=== PATIENT | male | born 1960 | race Caucasian/White ===

== ENCOUNTER → 2023-01-12 23:00 | Outpatient (CLI) | payer MEDICARE, SELFPAY ==
[2023-01-12 18:18] LABS: Benzodiazepines Screen,Urine Negative ng/ml (<200)
[2023-01-12 18:19] LABS: Amphetamine/Metha Screen,Urine Negative ng/ml (<1000)
[2023-01-12 18:20] LABS: Barbiturates Screen,Urine Negative ng/ml (<200); Cannabinoid Screen,Urine Negative ng/ml (<50)
[2023-01-12 18:21] LABS: Cocaine Screen,Urine Negative ng/ml (<300)
[2023-01-12 18:22] LABS: Methadone Screen,Urine Negative ng/ml (<300); Opiate Screen,Urine Negative ng/ml (<300)
[2023-01-12 18:23] LABS: Phencyclidine Screen,Urine Negative ng/ml (<25)
== END ==
PROVIDERS: PCP Nurse Practitioner Family; Visit Provider Nurse Practitioner Family
DX: Z79.899 Other long term (current) drug therapy (principal)
CPT/HCPCS: 80305

== ENCOUNTER 2023-03-07 18:30 | Outpatient (CLI) | payer MEDICARE, SELFPAY ==
[2023-03-07 22:02] LABS: Amphetamine/Metha Screen,Urine Negative ng/ml (<1000); Barbiturates Screen,Urine Negative ng/ml (<200); Cannabinoid Screen,Urine Negative ng/ml (<50); Cocaine Screen,Urine Negative ng/ml (<300); Methadone Screen,Urine Negative ng/ml (<300); Opiate Screen,Urine Negative ng/ml (<300); Phencyclidine Screen,Urine Negative ng/ml (<25)
[2023-03-07 22:41] LABS: Benzodiazepines Screen,Urine Negative ng/ml (<200)
== END 2023-03-07 23:59 ==
LOC: LAB.DROPOF 18:30
PROVIDERS: PCP Nurse Practitioner Family; Visit Provider Nurse Practitioner Family
DX: Z79.899 Other long term (current) drug therapy (principal)
CPT/HCPCS: 80307

== ENCOUNTER 2023-03-19 12:55 | Outpatient (CLI) | payer MEDICARE, SELFPAY | END 2023-03-19 23:59 | PROVIDERS: PCP Nurse Practitioner Family; Visit Provider Nurse Practitioner Family | DX: R06.02 Shortness of breath (principal); J44.9 Chronic obstructive pulmonary disease, unspecified; Z79.51 Long term (current) use of inhaled steroids; Z72.0 Tobacco use | CPT/HCPCS: 94060; 94618; 94726; 94729 ==

== ENCOUNTER 2023-05-08 18:59 | Outpatient (CLI) | payer MEDICARE, SELFPAY ==
[2023-05-08 18:26] LABS: Basophils # 0.1 K/mm3 (0-0.2); Basophils % 1.4 % (0.1-2.0); Eosinophils # 0.1 K/mm3 (0.0-0.4); Eosinophils % 0.8 % (0.1-12.0); Hematocrit 53.7 % (42.0-52.0); Hemoglobin 17.4 g/dL (14.1-18.0); Lymphocytes # 2.8 K/mm3 (0.7-4.5); Lymphocytes % 33.6 % (10-50); Mean Corpuscular HGB Conc 32.5 g/dL (31.8-35.4); Mean Corpuscular Hemoglobin 33.1 pg (27.0-31.2); Mean Corpuscular Volume 101.9 fl (80-94); Mean Platelet Volume 8.1 fl (7.4-10.4); Monocytes # 0.4 K/mm3 (0.1-1.0); Monocytes % 4.4 % (1.7-9.3); Neutrophils # 4.9 K/mm3 (1.8-7.8); Neutrophils % 59.7 % (37.0-80.0); Platelet Count 266 K/mm3 (142-424); Red Blood Count 5.27 M/mm3 (4.60-6.20); Red Cell Distribution Width 13.4 % (11.5-17.5); White Blood Count 8.2 K/mm3 (4.8-10.8)
[2023-05-08 18:37] LABS: Alanine Aminotransferase 15 U/L (12-78); Albumin Level 4.5 g/dl (3.5-5.0); Albumin/Globulin Ratio 1.6 (1.1-1.8); Alkaline Phosphatase 53 U/L (38-126); Anion Gap 13.7 mEq/L (5-15); Aspartate Amino Transferase 27 U/L (17-59); Bilirubin,Total 0.6 mg/dl (0.2-1.3); Blood Urea Nitrogen 14 mg/dl (9-20); Calcium 9.8 mg/dl (8.4-10.2); Carbon Dioxide 29 mmol/L (22.0-30.0); Chloride 104 mmol/L (98-107); Chol/HDL Ratio 4.9 (1-3.5); Cholesterol 207 mg/dl (140-200); Estimated Glomerular Filt Rate 86 ml/min (>60); GFR (African American) 104 ML/MIN (>60); Globulin 2.9 g/dL (1.3-3.2); Glucose 102 mg/dl (74-100); HDL Cholesterol 42 mg/dl (40-60); Potassium 4.7 mmoL/L (3.5-5.1); Sodium 142 mmol/L (136-145); Total Protein,Serum 7.4 g/dl (6.3-8.2); Triglycerides 110 mg/dl (30-150); VLDL Cholesterol 22 mg/dL (0-40)
[2023-05-08 18:53] LABS: 25-OH Vitamin D, Total 21.5 ng/mL (30-100)
[2023-05-08 18:54] LABS: Direct LDL Cholesterol 126.02 mg/dL (100-129)
[2023-05-08 19:08] LABS: Prostate Specific Ag Screen 1.5 ng/ml (0.0-4.0); Thyroid Stimulating Hormone 0.98 uIU/mL (0.465-4.68)
== END 2023-05-08 23:59 ==
LOC: LAB.DROPOF 19:00
PROVIDERS: PCP Nurse Practitioner Family; Visit Provider Nurse Practitioner Family
DX: Z12.5 Encounter for screening for malignant neoplasm of prostate (principal); E55.9 Vitamin D deficiency, unspecified; E78.5 Hyperlipidemia, unspecified; R53.83 Other fatigue; I10 Essential (primary) hypertension; Z68.25 Body mass index [BMI] 25.0-25.9, adult; Z72.0 Tobacco use
CPT/HCPCS: 80053; 80061; 82306; 84443; 85025; G0103

== ENCOUNTER 2023-12-10 15:13 | Outpatient (CLI) | payer MEDICARE, SELFPAY ==
--- NOTE | 2023-12-10 15:14 | CT_ITS ---
FINAL REPORT CLINICAL HISTORY: lung cancer screening smoker 40 years, 1ppd hx of copd, emphysema father hx of lung cancer COMPARISON: None FINDINGS: Axial images were obtained from the lung apex to the mid abdomen by computed tomography. Low-dose protocol was utilized. CTDl vol(mGy): 2.90 DLP (mGy-cm): 117.50 FINDINGS: There is no axillary adenopathy. There are a few small scattered mediastinal lymph nodes. There are calcified hilar nodes. The heart size is normal. There is no pericardial or pleural effusion. There are moderate changes of centrilobular emphysema. Multiple small noncalcified nodules are seen in the lungs bilaterally. There is a 6 mm nodule in the left lung base seen on image 73 of series 3. There is an adjacent 3 mm nodule in the left lung base seen on image 75 of series 3. A small fissural nodule on the right measures 5 mm and is well-seen on image 51 of series 3. In the right midlung, there is a new nodule measuring up to 7 mm seen on image 72 of series 3. Other smaller pulmonary nodules are seen. IMPRESSION: Bilateral pulmonary nodules measuring up to 7 mm in the right midlung and up to 6 mm in the left lower lobe. Lung RADS category 3. Recommend 6 month follow-up low-dose chest CT. Reviewed, Interpreted and Dictated by Roberth Raymond MD Transcribed by Tamara Stroud Authenticated and [facility]
== END 2023-12-10 23:59 | disposition home or self-care (01) ==
LOC: RAD 15:14
PROVIDERS: PCP Nurse Practitioner Family; Visit Provider Internal Medicine Pulmonary Disease
DX: F17.210 Nicotine dependence, cigarettes, uncomplicated (principal)
CPT/HCPCS: 71271

== ENCOUNTER 2024-02-20 16:43 | Emergency (ER) | payer MEDICARE, SELFPAY ==
[2024-02-20 16:54] VITALS: BP 123/83; PULSE 83; RESP 18; TEMP 36.7; O2SAT 96; BMI 23.6
[2024-02-20 16:56] LABS: Coronavirus 19, PCR Not Detected (NotDetected); Influenza A, PCR Not Detected (NotDetected); Influenza B, PCR Not Detected (NotDetected)
--- NOTE | 2024-02-20 17:00 | XR_ITS ---
PROCEDURE INFORMATION: Exam: XR Chest Exam date and time: 02/20/2024 5:10 PM Age: 63 years old Clinical indication: Cough; Additional info: Cough, wheezing TECHNIQUE: Imaging protocol: Radiologic exam of the chest. Views: 2 views. COMPARISON: CT LUNG SCREENING 12/10/2023 3:15 PM FINDINGS: Lungs: Unremarkable. No consolidation. Pleural spaces: Unremarkable. No pleural effusion. No pneumothorax. Heart/Mediastinum: Unremarkable. No cardiomegaly. Bones/joints: Unremarkable. IMPRESSION: No acute findings.
--- NOTE | 2024-02-20 17:00 | HMH.EDGENADL ---
Discharge Plan Disposition Patient Disposition: Home, Self-Care Condition: Good Prescriptions Prescriptions: New azithromycin 500 mg tablet 500 mg PO DAILY 4 Days Qty: 4 0RF prednisone 20 mg tablet 40 mg PO DAILY 4 Days Qty: 8 0RF efeqnwusgpbawhy-ryehoqucj-GS [Bromfed DM] 2-30-10 mg/5 mL syrup 5 ml PO Q6H PRN (Reason: cold symptoms) Qty: 118 0RF amoxicillin-pot clavulanate 875-125 mg tablet 1 tab PO BID 7 Days Qty: 14 0RF No Action albuterol sulfate [ProAir HFA] 90 mcg/actuation HFA aerosol inhaler 2 puff inhalation Q4-6H PRN (Reason: shortness of breath or wheezing) Qty: 8.5 2RF Trelegy Ellipta 100-62.5-25 mcg blister with device 1 inh inhalation DAILY 90 Days Qty: 90 2RF sildenafil 100 mg tablet 100 mg PO DAILY PRN (Reason: sexual activity) Qty: 30 0RF Rx Instructions: administer 30 minutes to 4 hours before activity fluticasone propionate [Flonase Allergy Relief] 50 mcg/actuation spray,suspension 2 spray intranasal DAILY 90 Days Qty: 16 2RF Rx Instructions: administer into each nostril gabapentin 400 mg capsule 400 mg PO TID Qty: 90 3RF tamsulosin 0.4 mg capsule 0.4 mg PO HS Qty: 90 1RF Debrox 6.5 % drops 5 drp otic (ear) DAILY 4 Days Qty: 15 0RF Referrals Follow up/Referrals: Bob Ventura APRN [Primary Care Provider] - See instructions Activity Restrictions/Add. Instructions Additional Instructions/Restrictions: You were evaluated in the emergency department today. Please picker your prescriptions at the pharmacy and take them as prescribed. Follow-up closely with your primary care provider and revenue settlements administrator. Expect that cough may linger for several weeks. Return to the emergency department for new or worsening symptoms. Clinical Impressions Clinical Impression: Viral URI with cough, Acute right otitis media, Acute exacerbation of chronic obstructive pulmonary disease Stand Alone Forms Stand Alone Forms: Work/School Release Instructions Patient Instructions: Middle Ear Infection, DI for Chronic Obstructive Pulmonary Disease, DI for Viral Upper Respiratory Infection -- Adult Print Language Print Language: Belarusian Discharge ED Provider: [facility] HPI General Chief complaint: Upper Respiratory Infection Stated complaint: cough, runny nose rebecca Time Seen by Provider: 02/20/24 16:48 Mode of Arrival: Ambulatory Source of Information: Patient Limitations: No Limitations Description of Symptoms (Recalled from ER Triage Doc. by RN): cough congestion x1 wk History of Present Illness HPI narrative: This patient is a 63-year-old male with a history of tobacco dependence and COPD presenting to the emergency department for evaluation with concern for cough and congestion x 1 week. He states it started out as a sore throat but then progressed to significant cough and chest congestion. No fevers, chest pain, abdominal pain, vomiting, or other concerns. He has taken NyQuil with some improvement but continues to have cough and congestion. He does have inhalers at home Related Data Previous Rx's ?Medication ?Instructions ?Recorded sildenafil 100 mg tablet 100 mg PO DAILY PRN sexual 03/07/23 activity #30 tabs fluticasone propionate 50 2 spray intranasal DAILY 90 days 04/20/23 mcg/actuation nasal #16 grams spray,suspension (Flonase Allergy Relief) albuterol sulfate 90 mcg/actuation 2 puff inhalation Q4-6H PRN 08/02/23 aerosol inhaler (ProAir HFA) shortness of breath or wheezing #8.5 grams fluticasone fur. 100 mcg-umeclid 1 inh inhalation DAILY 90 days #90 08/02/23 62.5 mcg-vilant 25 mcg ea inhalat.powder (Trelegy Ellipta) carbamide peroxide 6.5 % ear drops 5 drp otic (ear) DAILY 4 days #15 12/12/23 (Debrox) mL gabapentin 400 mg capsule 400 mg PO TID #90 caps 12/12/23 tamsulosin 0.4 mg capsule 0.4 mg PO HS #90 caps 12/12/23 amoxicillin 875 mg-potassium 1 tab PO BID 7 days #14 tabs 02/20/24 clavulanate 125 mg tablet azithromycin 500 mg tablet 500 mg PO DAILY 4 days #4 tabs 02/20/24 ebbaeazglwbrunh-rzzempwnjsycmdc-VH 5 ml PO Q6H PRN cold symptoms #118 02/20/24 2 mg-30 mg-10 mg/5 mL oral syrup mL (Bromfed DM) prednisone 20 mg tablet 40 mg (2 x 20 mg) PO DAILY 4 days 02/20/24 #8 tabs Allergies Allergy/AdvReac Type Severity Reaction Status Date / Time No Known Allergies Allergy Verified 12/17/23 15:26 [facility] Disclaimer: The information contained in this section may have been updated after the patient was seen, as this information can be updated by other users. Medical History Multiple lung nodules on CT Encounter for screening for malignant neoplasm of lung Smoking greater than 30 pack years Allergic rhinitis Asthma Hernia, inguinal Surgical History History of hernia surgery Family History Other Cancer Diabetes Social History Smoking Status: Current every day smoker years smoked: 40 alcohol intake: never substance use type: denies use current occupational status: disabled Travel in the last 8 weeks: None household members: caregiver housing: apartment marital status: education level: other details: GED service: No Have you lived/traveled outside [place] in past 30 days?: No Contact w/someone who lives/traveled outside [place] past 30 days?: No Exposure to someone with infectious disease in past 14 days?: No Do you have a fever (greater than 100.4 F or 38 C)?: No Have you tested positive for COVID-19: No Exposed to someone with COVID-19 in past 14 days?: Yes Do you have a sore throat?: Yes Do you have a cough?: Yes Do you have any weakness?: Yes Do you have any diarrhea?: No Are you experiencing any unusual bleeding?: No Do you have any muscle aches/pain?: Yes Do you have any abdominal pain?: No Are you experiencing loss of taste or smell?: No Other Medical History Have you received the Pneumonia Vaccine: No ROS Obtained: Yes All systems reviewed & no additional complaints except as documented Physical Exam General General appearance: alert and in no apparent distress Head Head exam: atraumatic and normocephalic Eye Eye exam: Present normal appearance, PERRL and EOMI ENT ENT exam: Present normal oropharynx, mucous membranes moist, normal external ear exam and other (Right suppurative otitis media. Bilateral cerumen impaction); Absent TM's normal bilaterally Neck Neck exam: Present normal inspection, full ROM and trachea midline; Absent tenderness Chest Chest inspection: Present normal inspection and symmetric chest wall rise; Absent tenderness Respiratory Respiratory exam: Present wheezes and other (Faint end expiratory wheezing with no increased work of breathing.); Absent respiratory distress, stridor or accessory muscle use Cardiovascular Cardiovascular exam: Present regular rate and normal rhythm Abdominal Exam Abdominal exam: Present soft; Absent distention, tenderness or guarding Extremities Exam Extremities exam: Present normal inspection, full ROM and normal capillary refill; Absent tenderness or edema Back Exam Back exam: Present normal inspection and full ROM; Absent tenderness Neurological Exam Neurological exam: Present alert, oriented X3, CN II-XII intact and normal gait; Absent motor sensory deficit Psychiatric Psychiatric exam: Present normal affect and normal mood Skin Skin exam: Present warm and dry Medical Decision Making Medical Records Medical records reviewed: Yes I reviewed the patient's medical records. Screening: Per USPSTF and CDC recommendations, given the prevalence of disease in our region, it is our hospital?s policy to screen for HIV and viral Hepatitis for all patients aged 18 and over and those with ongoing risk factors. [place] Inquiry Pt receiving controlled substance: No Vital Signs: 02/20/24 16:54 02/20/24 17:46 Temperature 98.1 F 98.3 F Temperature Source Oral Oral Pulse Rate 73 Pulse Rate [Right Radial] 83 Respiratory Rate 18 22 Blood Pressure 126/78 Blood Pressure [Right Arm] 123/83 Blood Pressure Mean [Right Arm] 96 Blood Pressure Source Automatic Cuff Blood Pressure Position Sitting 02 Sat by Pulse Oximetry 96 Oxygen Delivery Method Room Air Lab Data Lab results reviewed: Yes I reviewed the patient's lab results. Lab Results 02/20/24 16:53: SARS-CoV-2 (PCR) Not detected, Influenza A Untype (PCR) Not detected, Influenza Type B (PCR) Not detected Orders (Tests/Meds): ED MEDICATIONS Discontinued Medications Generic Name Dose Route Start Last Admin Trade Name Freq PRN Reason Stop Dose Admin Amoxicillin 500 mg 02/20/24 17:29 02/20/24 17:35 Amoxicillin 500mg Capsule PO 02/20/24 17:30 Not Given ONCE ONE Amoxicillin/Clavulanate Potassium 1 each 02/20/24 17:33 02/20/24 17:39 Amoxicillin/Clavulanate Potassium 875/125mg Tablet PO 02/20/24 17:34 1 each ONCE ONE Administration Azithromycin 500 mg 02/20/24 17:29 02/20/24 17:39 Azithromycin 250mg Tablet PO 02/20/24 17:30 500 mg ONCE ONE Administration Prednisone 40 mg 02/20/24 17:29 02/20/24 17:39 Prednisone 20mg Tab PO 02/20/24 17:30 40 mg ONCE ONE Administration ORDERS Category Date Time Status CXR 2 view (NOT portable) [XR chest 2V] Stat Exams 02/20/24 17:00 Completed Rapid PCR Covid and Flu A/B Stat Lab 02/20/24 16:53 Completed Medical Decision Narrative: In summary, this patient is a 63-year-old male presenting to the Emergency Department for evaluation of cough and chest congestion. Differential diagnoses considered include but are not limited to pneumonia, viral syndrome, respiratory failure, COPD exacerbation. Ruling out the most morbid conditions drove assessment. It should be noted patient's history includes COPD and tobacco dependence which are not at goal therapy. This complicates all aspects of care by increasing patient's risk for morbidity. I reviewed patient's past medical records and noted prior PCP and pulmonology evaluations for follow-up for COPD on long-term inhaled steroid. On exam, the patient is sitting upright in no acute distress with reassuring vital signs on cardiac telemetry. No increased work of breathing. He has faint end expiratory wheezing but otherwise reassuring respiratory exam. He does have significant amount of cerumen in the ears and states that he feels like it stopped up. His ears were flushed here by nursing to help clear out wax impaction with great results. Physical exam afterward concerning for right otitis media with redness, bulging tympanic membrane with suppurative effusion. Will plan to treat this with oral antibiotics. Workup included viral swab and two-view chest x-ray. I considered obtaining basic lab evaluation including CBC and CMP, however based on reassuring history and exam I do not feel this is indicated as it would likely not foreign exchange clerk. I independently interpreted x-ray prior to the radiologist read and noted no acute focal consolidation concerning for pneumonia.. Please see their read for final interpretation. On reassessment, the patient is resting comfortably. Ultimately, given that he has history of COPD, we will plan to treat wheezing with steroids as well as azithromycin. Given otitis, will treat with Augmentin. At this time, feel the patient is appropriate for discharge home with prescriptions and instructions for close follow-up with primary care. Strict return precautions were given and he was discharged after all questions were answered. Critical Care Critical Care Time Critical Care Time: No
[2024-02-20] MEDS: AZITHROMYCIN 250MG TABLET 500 MG PO (17:39)
[2024-02-20] MEDS: predniSONE 20MG TAB 40 MG PO (17:39)
[2024-02-20] MEDS: AMOXICILLIN/CLAVULANATE POTASSIUM 875/125MG TABLET 1 EACH PO (17:39)
[2024-02-20 17:46] VITALS: BP 126/78; PULSE 73; RESP 22; TEMP 36.8; O2SAT 95
== END 2024-02-20 17:45 | disposition home or self-care (01) ==
PROVIDERS: Emergency Provider Emergency Medicine; PCP Nurse Practitioner Family
DX: J44.1 Chronic obstructive pulmonary disease with (acute) exacerbation (principal); H66.91 Otitis media, unspecified, right ear; J06.9 Acute upper respiratory infection, unspecified; R09.81 Nasal congestion; J02.9 Acute pharyngitis, unspecified; R05.9 Cough, unspecified; Z72.0 Tobacco use
CPT/HCPCS: 71046; 87636; 99283

== ENCOUNTER 2024-06-18 10:40 | Outpatient (CLI) | payer MEDICARE, SELFPAY ==
--- NOTE | 2024-06-18 10:41 | CT_ITS ---
FINAL REPORT TECHNIQUE: Thin section axial images were obtained from the lung apices through the upper abdomen without contrast. This study was performed with techniques to keep radiation doses as low as reasonably achievable (ALARA). Individualized dose reduction techniques using automated exposure control or adjustment of mA and/or kV according to the patient's size were employed. CLINICAL HISTORY: 6 mth F/U; bilateral nodules COMPARISON: CT low-dose 12/10/2023 FINDINGS: There is no mediastinal, hilar, or axillary lymphadenopathy. No pleural or pericardial effusion. Changes from emphysema. No new pulmonary nodules or mass. Previously seen noncalcified pulmonary nodules are unchanged. Index nodule in the right middle lobe on image 163 of series 3 measures 5 mm and was 6 mm on read measurement. Left lower lobe nodules are also stable. Nodule on image 210 of series 3 measures 6 mm and was 6 mm on remeasurement. No new consolidations. Limited, unenhanced evaluation of the upper abdomen is without acute abnormality. There is no acute osseous abnormality. IMPRESSION: Stable bilateral subcentimeter pulmonary nodules without new abnormality identified. Recommend continued follow-up in an additional 12 months. Reviewed, Interpreted and Dictated by Francy Cleaning MD Transcribed by Aisha Madrigal Authenticated and [facility]
== END 2024-06-18 23:59 | disposition home or self-care (01) ==
LOC: RAD 10:41
PROVIDERS: PCP Nurse Practitioner Family; Visit Provider Internal Medicine Pulmonary Disease
DX: R91.8 Other nonspecific abnormal finding of lung field (principal)
CPT/HCPCS: 71250

== ENCOUNTER 2024-10-29 15:55 | Emergency (ER) | payer MEDICARE, SELFPAY ==
[2024-10-29 16:10] VITALS: BP 104/62; PULSE 82; RESP 16; TEMP 37; O2SAT 94; BMI 23.6
[2024-10-29 16:18] VITALS: BP 136/83; PULSE 86; RESP 22; TEMP 37; O2SAT 93
--- NOTE | 2024-10-29 16:20 | ED_ITS ---
<Statement entered by Vish Hale MD - 10/30/24 04:15> I was consulted by the SHARIFA, and we discussed the complexity of the problems being addressed. I approve the treatment and management plan for this patient's care in the emergency department, thus performing a substantive portion of the medical decision making. Vish Hale MD Discharge Plan Disposition Patient Disposition: Home, Self-Care Condition: Good Prescriptions Prescriptions: New albuterol sulfate [Ventolin HFA] 90 mcg/actuation HFA aerosol inhaler 2 inh inhalation Q4H PRN (Reason: shortness of breath or wheezing) Qty: 8.5 0RF azithromycin [Zithromax Z-Rashawn] 250 mg tablet See Rx Instructions .ROUTE .COMPLEX Qty: 6 0RF Rx Instructions: For 250 mg dose pack: take 500 mg today (day 1), then 250 mg for 4 days (days 2-5) No Action sildenafil 100 mg tablet 100 mg PO DAILY PRN (Reason: sexual activity) Qty: 30 0RF Rx Instructions: administer 30 minutes to 4 hours before activity fluticasone propionate [Flonase Allergy Relief] 50 mcg/actuation spray,suspension 2 spray intranasal DAILY 90 Days Qty: 16 2RF Rx Instructions: administer into each nostril gabapentin 400 mg capsule 400 mg PO TID Qty: 90 3RF albuterol sulfate 90 mcg/actuation HFA aerosol inhaler See Rx Instructions .ROUTE .COMPLEX Qty: 9 2RF Dose Instruction: INHALE 2 PUFFS BY MOUTH EVERY 4 TO 6 HOURS NEEDED FOR SHORTNESS OF BREATH FOR WHEEZING Rx Instructions: INHALE 2 PUFFS BY MOUTH EVERY 4 TO 6 HOURS NEEDED FOR SHORTNESS OF BREATH FOR WHEEZING Trelegy Ellipta 100-62.5-25 mcg blister with device See Rx Instructions .ROUTE .COMPLEX Qty: 60 6RF Dose Instruction: Inhale 1 puff by mouth once daily Rx Instructions: Inhale 1 puff by mouth once daily tamsulosin 0.4 mg capsule See Rx Instructions .ROUTE .COMPLEX Qty: 90 0RF Dose Instruction: TAKE 1 CAPSULE BY MOUTH AT BEDTIME NIGHTLY Rx Instructions: TAKE 1 CAPSULE BY MOUTH AT BEDTIME NIGHTLY Referrals Follow up/Referrals: Provider,Referral, MD [Primary Care Provider, Medical] - See instructions Activity Restrictions/Add. Instructions Additional Instructions/Restrictions: You were evaluated on an emergency basis. It is very important that you follow- up with your primary care provider and any specialist who we discussed within the next 2 days in order to better assess your health more comprehensively. For example, incidental findings on imaging or laboratory results that were performed today may be discovered, which do not require immediate medical care, but may impact your health in the future. If your symptoms worsen or persist, please return to the emergency department immediately for reassessment. Take all medications as prescribed. In queue for allowing me to participate in your health care, and I hope you feel better soon. Clinical Impressions Clinical Impression: Acute exacerbation of chronic obstructive pulmonary disease (COPD) Instructions Patient Instructions: DI for Chronic Obstructive Pulmonary Disease Print Language Print Language: Japanese Discharge ED Provider: Vish Hale General Adult HPI General Chief complaint: Upper Respiratory Infection Stated complaint: soa , CONGESTED Time Seen by Provider: 10/29/24 16:20 Mode of Arrival: Ambulatory Source of Information: Patient Description of Symptoms (Recalled from ER Triage Doc. by RN): patient presents to the ED for shortness of breath. history of COPD and asthma. does not have a prescribed inhaler for his asthma mark harrington have one that a friend gave him. he states he cannot afford it . History of Present Illness HPI narrative: 63-year-old male with a history of COPD and asthma presents to the emergency department with complaints of cough, shortness of breath for the past several days. Denies fevers or chest pain. He reports he is out of his Trelegy but does have an albuterol inhaler. Patient reports he is unable to afford his Trelegy. Related Data Previous Rx's ?Medication ?Instructions ?Recorded sildenafil 100 mg tablet 100 mg PO DAILY PRN sexual 0 03/07/23 activity #30 tabs fluticasone propionate 50 2 spray intranasal DAILY 90 days 04/20/23 mcg/actuation nasal #16 grams spray,suspension (Flonase Allergy Relief) albuterol sulfate 90 mcg/actuation See Rx Instructions .Route 06/10/24 aerosol inhaler .COMPLEX #9 grams fluticasone fur. 100 mcg-umeclid See Rx Instructions . Route 08/25/24 62.5 mcg-vilant 25 mcg .COMPLEX #60 ea inhalat.powder (Trelegy Ellipta) gabapentin 400 mg capsule 400 mg PO TID #90 caps 08/26 tamsulosin 0.4 mg capsule See Rx Instructions .Route 0 09/15/24 .COMPLEX #90 caps albuterol sulfate 90 mcg/actuation 2 inh inhalation Q4 H PRN shortness 10/29/24 aerosol inhaler (Ventolin HFA) of breath or wheezing # 8.5 grams azithromycin 250 mg tablet See Rx Instructions PO .COM PLEX #6 10/29/24 (Zithromax Z-Rashawn) tabs Allergies Allergy/AdvReac Type Severity Reaction Status Date / Time No Known Allergies Allergy Verified 08/26/24 15:21 [facility] Disclaimer: The information contained in this section may have been updated after the patient was seen, as this information can be updated by other users. Medical History (Updated 10/29/24 @ 18:47 by Deborah Wong) Colon cancer screening Multiple lung nodules on CT Encounter for screening for malignant neoplasm of lung Smoking greater than 30 pack years Allergic rhinitis Asthma Hernia, inguinal Surgical History History of hernia surgery Family History Other Cancer Diabetes Social History Smoking Status: Current every day smoker years smoked: 40 alcohol intake: never substance use type: denies use current occupational status: disabled Travel in the last 8 weeks?: None household members: caregiver housing: apartment marital status: education level: other details: GED service: No Have you lived/traveled outside [place] in past 30 days?: No Contact w/someone who lives/traveled outside [place] past 30 days?: No Exposure to someone with infectious disease in past 14 days?: No Do you have a fever (greater than 100.4 F or 38 C)?: No Have you tested positive for COVID-19?: No Exposed to someone with COVID-19 in past 14 days?: No Do you have a sore throat?: No Do you have a cough?: No Do you have any weakness?: No Do you have any diarrhea?: No Are you experiencing any unusual bleeding?: No Do you have any muscle aches/pain?: No Do you have any abdominal pain?: No Are you experiencing loss of taste or smell?: No Other Medical History Have you received the Pneumonia Vaccine: No ROS Obtained: Yes other Respiratory Respiratory: Reports shortness of breath, Reports chest congestion, Reports cough and Reports wheezing Allergic/Immunologic Allergic/Immunologic: Reports wheezing Physical Exam Narrative Physical exam: General: Awake, aware, in no acute distress HEENT: Normocephalic, no evidence of trauma CV: RRR, no murmurs, rubs, or gallops Pulm: Patient with diminished lung sounds bilaterally. He does have wheezing as well. Patient with mild increased work of breathing while carrying on a conversation however at rest patient appears to be without respiratory distress. ABD: Nontender, no swelling, guarding, or rebound tenderness Psych, appropriate mood and affect General General appearance: alert Respiratory Respiratory exam: Present wheezes Cardiovascular Cardiovascular exam: Present regular rate Neurological Exam Neurological exam: Present alert Medical Decision Making Medical Records Screening: Per USPSTF and CDC recommendations, given the prevalence of disease in our region, it is our hospital?s policy to screen for HIV and viral Hepatitis for all patients aged 18 and over and those with ongoing risk factors. [place] Inquiry Pt receiving controlled substance: No Vital Signs: 10/29/24 16:10 10/29/24 16:18 10/29/24 16:29 Temperature 98.6 F 98.6 F Temperature Source Temporal Artery Scan Oral Pulse Rate 86 Pulse Rate [Left Radial] 82 Respiratory Rate 16 22 Blood Pressure 136/83 Blood Pressure [Left Arm] 104/62 L Blood Pressure Mean [Left Arm] 76 Blood Pressure Source Automatic Cuff Blood Pressure Source [Left Arm] Automatic Cuff Blood Pressure Position Sitting Blood Pressure Position [Left Arm] Sitting 02 Sat by Pulse Oximetry 94 L 93 L 94 L Oxygen Delivery Method Room Air Room Air Room Air Lab Data Lab Results 10/29/24 16:38: WBC 6.2, RBC 4.97, Hgb 15.6, Hct 47.5, MCV 95.6 H, MCH 31.4 H, MCHC 32.8, RDW 12.6, Plt Count 187, MPV 9.8, Neut % (Auto) 57.7, Lymph % (Auto) 34.2, Richardson % (Auto) 5.5, Eos % (Auto) 1.8, Baso % (Auto) 0.6, Neut # (Auto) 3.6, Lymph # (Auto) 2.1, Richardson # (Auto) 0.3, Eos # (Auto) 0.1, Baso # (Auto) 0.0, Sodium 140, Potassium 4.1, Chloride 107, Carbon Dioxide 27, Anion Gap 10.1, BUN 16, Creatinine 0.70, Estimated Creat Clear 82, Estimated GFR 115, Est GFR ( Amer) 139, Glucose 120 H, Calcium 9.3, Total Bilirubin 0.9, AST 25, ALT 17, Alkaline Phosphatase 50, Total Protein 7.3, Albumin 4.2, Globulin 3.1, Albumin/Globulin Ratio 1.4 10/29/24 : SARS-CoV-2 (PCR) Not detected, Influenza A Untype (PCR) Not detected, Influenza Type B (PCR) Not detected 10/29/24 16:38 10/29/24 16:38 Orders (Tests/Meds): ED MEDICATIONS Discontinued Medications Generic Name Dose Route Start Last Admin Trade Name Freq PRN Reason Stop Dose Admin Albuterol/Ipratropium 3 ml 10/29/24 16:25 10/29/24 16:41 Ipratropium/Albuterol 3 Ml Neb IH 10/29/24 16:26 3 ml ONCE ONE Administration Methylprednisolone Sodium Succinate 125 mg 10/29/24 16:25 10/29/24 16:38 Methylprednisolone Sod Succ 125mg Vial IV 10/29/24 16:26 125 mg ONCE ONE Administration ORDERS Category Date Time Status XR chest portable Stat Exams 10/29/24 16:25 Completed Complete Blood Count Auto Diff Stat Lab 10/29/24 16:38 Completed Comprehensive Metabolic Panel Stat Lab 10/29/24 16:38 Completed Rapid PCR Covid and Flu A/B Stat Lab 10/29/24 Completed Medical Decision Narrative: Initial impression of presenting illness: 63-year-old male with a history of COPD and asthma presents emergency department with complaints of cough, congestion, shortness of breath for the past several days. He denies fever or chest pain. He reports that he has been unable to take his Trelegy because he is unable to afford it however he has been using albuterol without relief of symptoms. He reports that he continues to smoke daily. Differential diagnosis includes but is not limited to: COPD exacerbation, pneumonia, viral illness Patient arrives hemodynamically stable, afebrile, without respiratory distress with vital signs interpreted by myself. Initial physical exam reveals diminished breath sounds bilaterally with wheezing. Does have slight increased work of breathing while carrying on a conversation however at rest patient is without respiratory distress. Rest of exam is unremarkable Initial diagnostic plan: Chest x-ray, laboratory studies, DuoNeb with Solu- Medrol, EKG Results from initial plan were reviewed and interpreted by myself, pertinent positives include: Laboratory studies were nonactionable. Open and flu swabs were also negative. Chest x-ray unremarkable for acute findings. Patient's EKG showed a normal sinus rhythm with no signs of ischemic changes at this time. Interventions in the ED: Patient was given DuoNeb as well as IV Solu-Medrol. Patient was made aware of the results and the findings, upon reevaluation patient has remained stable throughout stay, symptoms have improved. Upon reevaluation patient is resting comfortably in bed stating he feels much better after receiving the medications. Consultation/discussion with other physicians: Reviewed findings of patient's presenting complaint and today's workup with ED attending Dr. Oliveros. Disposition: Reviewed findings today's workup with patient informed no acute abnormalities were noted. Vies him his symptoms were likely related to his COPD exacerbation. Informed him that we will give her prescription for Z-Rashawn as well as albuterol. Recommended that he reach out to his primary care provider for further evaluation and treatment of his COPD. Him to return to the emergency department any new or worsening symptoms including uncontrolled fevers, worsening shortness of breath, or chest pain. Patient is agreeable to plan of care Patient made aware of findings and had a detailed discussion with symptomatic care and return precautions, patient voiced understanding. Critical Care Critical Care Time Critical Care Time: No
--- OUTSIDE RECORDS SUMMARY | 2024-10-29 16:24 | XMS_ITS | Clinical Summary ---
Author Organization [facility] Address [address] [place] [address] Phone Care Team Providers Care House Fellow Name Role Phone Unavailable Primary Care Provider Unavailabl e Allergies No known active allergies Medications cyanocobalamin 1,000 mcg Oral TabletIndications:A nemia due to vitamin B12 deficiency, unspecified B12 deficiency type Take 1 Tab by mouth daily. 90 Tab 2 0 Active tamsulosin (FLOMAX) 0.4 mg Oral CapsuleIndications: BPH without urinary obstruction TAKE ONE CAPSULE BY MOUTH ONCE NIGHTLY 90 Capsule 1 3 Active gabapentin (NEURONTIN) 400 mg Oral CapsuleIndications: Cervical myelopathy (HCC),Peripheral polyneuropathy Take 1 Capsule by mouth 3 times daily. 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 30 Tablet 1 3 Active albuterol (VENTOLIN HFA) 90 mcg/actuation Inhl HFA Aerosol InhalerIndications: COPD, severe (HCC) Inhale 2 Puffs into the lungs every 4 hours as needed for Wheezing. 1 g 5 3 Active umeclidinium-vilant Erika (ANORO ELLIPTA) 62.5-25 mcg/actuation Inhl Disk with DeviceIndications:C OPD, severe (HCC) Inhale 1 Puff into the lungs daily. 1 Each 5 3 Active Active Problems Patient Care Coordination No te Formatting of this note migh t be different from the original. CTSA UDS 06-08-21 as expected SOAP 03/31/2019 CYNTHIA 08/25/22 SEE TELEPHONE ENCOUNTER FROM 02/03/19 BEFORE FURTHER REFILLS OF GABAPENTIN cynthia ae 06/06/21 #[id number], 09/20/21 #[id number] [facility] audit completed by Keerthi Henry RN on 06/22/2022. Problem Noted Date Diagnosed Date BPH without urinary obstruction 01/28/2021 Overview (06/07/2021): Currently on Flomax with adequate control of symptoms. Reviewed most recent labs. Peripheral polyneuropathy 01/28/2021 Overview (01/28/2021): refilled gabapentin and tramadol. Cervical myelopathy 04/29/2018 Overview (06/07/2021): S/P injury 2015. Fell and hit neck on a table. Pain radiates into both arms. Has not had any recent imaging. Also suffers from lumbar pain. Had seen specialist in [place]. COPD, severe 03/28/2018 Overview (01/28/2021): PFTs Feb 2018 Daily Anoro but sometimes forgets. prn Rescue inhaler (1x day). Still smoking. Cervical radiculopathy 05/03/2016 Overview (01/28/2021): S/P injury 2015. Fell and hit neck on a table. Pain radiates into both arms. Referred to Pain mgmt [place] 01/28/21 refilled 30 days once of meds until these Rx will be taken over by Dr Mccloud Right leg weakness 09/15/2015 Tobacco abuse 09/07/2015 Overview (08/04/2020): LDCT 08/04/20, repeat one year. Assessment & Plan (01/28/2021 1:01 PM EST): Spent 3 minutes discussing the fact that smoking makes 1 more prone to respiratory illnesses and when there is an illness, the illness is often more severe and takes longer to resolve. 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 Resolved Problems Problem Noted Date Diagnosed Date Resolved Date Lung nodule 03/31/2019 06/07/2021 Overview (03/31/2019): Stable on Chest CT 03/26/19, repeat one year. Right leg weakness 09/07/2015 9 Episode of loss of consciousness 09/07/2015 06/07/2021 Near syncope 01/01/2019 Immunizations Immunization Administration Dates Next Due Influenza Vaccine Quadrivalent PF 11/02/2020 Influenza Virus Vaccine Quad rivalant, Flublok 11/29/2021,11/07/2019,12/31/2018,03/18 Moderna SARS-CoV-2 Bivalent Booster Vaccine 12+ Years ([place] Border) 11/29/2021 Moderna SARS-CoV-2 Booster V accine 18+ Yrs (Light Blue Border) 09/20/2021 Moderna SARS-CoV-2 Vaccine 1 2+ Yrs (Light blue border) 01/28/2021,07/02/2020,06/04/2020 Pneumococcal Conjugate Vacci ne 20 Valent 03/07/2022 Pneumococcal Polysaccharide 23 Valent 09/07/2015 Tdap 08/20/2017 Surgical History Surgery Date Site/Laterality Comments ABDOMEN SURGERY hernia repair 1992 HERNIA REPAIR 02/26/1990 - 02/25/1991 Right Medical History Medical History Date Comments Asthma Tingling arms Syncope and collapse none Arthritis Foreign body in eye piece of met al Family History Medical History Relation Name Comments Cancer Father prostate cancer , lung cancer and bone cancer Relation Name Status Comments Father Social History Tobacco Use Types Packs/Day Years Used Date Smoking Tobacco: Every Day Cigarettes 2 45.9 Started: 1976 Smokeless Tobacco: Never Tobacco Cessation:Ready to Q uit: Not Asked; Counseling Given: Not Answered Comments:To 1 ppd Alcohol Use Standard Drinks/Week Comments Yes 0 (1 standard drink = 0.6 oz pur e alcohol) 12 pack a month Overall Financial Resource Strain (CARDIA) Answe r Date Recorded How hard is it for you to pa y for the very basics like food, housing, medical care, and heating? Not very hard 03/07/2022 PHQ-2 Answer Date Recorded PHQ-2 Total Score 0 06/02/2022 [facility] - Occupational Stress Questionnaire Answer Date Recorded Do you feel stress - tense, restless, nervous, or anxious, or unable to sleep at night because your mind is troubled all the time - these days? Rather much 03/07/2022 Exercise Vital Sign Answer Date Recorde d On average, how many days pe r week do you engage in moderate to strenuous exercise (like a brisk walk)? 0 days 03/07/2022 On average, how many minutes do you engage in exercise at this level? 0 min 03/07/2022 Hunger Vital Sign Answer Date Recorded Within the past 12 months, y ou worried that your food would run out before you got the money to buy more. Never true 03/07/19 23 Within the past 12 months, t he food you bought just didn't last and you didn't have money to get more. Never true 03/07/2022 PRAPARE - Transportation Answer Date Re corded In the past 12 months, has l ack of transportation kept you from medical appointments or from getting medications? No 02/26 In the past 12 months, has l ack of transportation kept you from meetings, work, or from getting things needed for daily living? No 03/07/2022 Sex and Gender Information Value Date Recorded Sex Assigned at Not on file Legal Sex Male 2:40 PM EDT Gender Identity Not on file Sexual Orientation Not on file Obstetrics History Last Filed Vital Signs Vital Sign Reading Time Taken Comments Blood Pressure 118/64 11/24/2022 10:05 AM EDT Pulse 75 11/24/2022 10:05 AM EDT Temperature 36.7 C (98 F) 11/24/2022 10:05 AM EDT Respiratory Rate 20 06/02/2022 10:11 AM EDT Oxygen Saturation 94% 11/24/2022 10:05 AM EDT Inhaled Oxygen Concentration - - Weight 71.9 kg (158 lb 9.6 oz) 11/24/2022 10:05 AM EDT Height 177.8 cm (5' 10 ) 11/24/2022 10:05 AM EDT Body Mass Index 22.76 11/24/2022 10:05 AM EDT Plan of Treatment Health Maintenance Due Date Last Done Comments Colonoscopy 12/11/2007 FIT 12/11/2007 Sigmoidoscopy 12/11/2007 Virtual Colonography 12/11/2007 Zoster (1 of 2) 2012 Cologuard 03/29/2021 03/29/2018, 03/29/2018 Colon Cancer Screening 03/29/2021 RSV or 60+ (1 - Risk 60-74 years 1-dose series) 2022 Wellness Exam Medicare 06/03/2023 06/02/2022 Low Dose Lung Cancer Screening 12/06/2023 12/05/2022, 12/01/2021, 08/04/2020, Additional history exists COVID-19 Vaccine (2024- season) 2024 11/29/2021, 09/20/2021, 01/28/2021, Additional history exists Influenza Vaccine (#1) 2024 , 11/02/2020, 11/07/2019, Additional history exists DTaP/TDaP/Td (2 - Td or Tdap) 08/21/2027 08/20/2017 Hepatitis C Screening Completed 03/26/2018 Pneumococcal Vaccine 50+ Completed 03/07/2022, 08/26 Hepatitis B Vaccine Aged Out No longe r eligible based on patient's age to complete this topic Meningococcal B Vaccine Aged Out No l onger eligible based on patient's age to complete this topic Goals Goal Patient Goal Type Associated Problems Recent Progress Patient-Stated? Author Maintain a healthy diet, exercise regularly and maintain an ideal body weight General No Miguel Henderson MA Stay Tobacco Free Lifestyle No Miguel Henderson MA Procedures Procedure Name Priority Date/Time Associated Diagnosis Comments CT LUNG CANCER SCREENING LOW DOSE Routine 12/05/2022 4:32 PM EDT History of tobacco use Encounter for screening for lung cancer COLOGUARD Routine 03/29/2018 9:15 AM EST Screening for colon cancer HCV ANTIBODY SCREEN W/ REFLEX Routine 03/26/2018 10:03 AM EST Need for hepatitis C screening test from Last 3 Months or Most Recently Relevant to Health Maintenance Results * CT LUNG CANCER SCREENING LOW DOSE (12/05/2022 4:32 PM EDT) Anatomical Region Laterality Modality Lung Computed Tomogra phy 12/05/2022 4:32 PM EDT Impressions 12/05/2022 4:37 PM EDT No new or enlarging pulmonary nodule. RECOMMENDATION: Low Dose CT - 1 Yr A summary letter communicating these results will be mailed to the patient's address of record. - Note: Radiology results need to be interpreted within a comprehensive clinical context. If you have questions about the radiology report, please contact the office of the ordering clinician. [email or web address] Narrative 12/05/2022 4:[address] LUNG CANCER SCREENING LOW DOSE 12/05/2022 4:32 PM CLINICAL HISTORY: Asymptomatic patient meeting NCCN high risk criteria for lung screening. Z87.891-Personal history of nicotine [id number]-32-CM Z12.2-Encounter for screening for malignant neoplasm of respiratory lqerjl-ZZX-17-CM. COMPARISON: Multiple priors, most recently 2021 PROCEDURE COMMENTS: Noncontrast, low-dose, multidetector CT chest per department protocol. Interactive 3-D postprocessing done by the reviewing physician on a [employer] workstation, using Maximum intensity projections (MIPS) and [employer] LUNG CAD for improved lesion detection. Laws images archived to PACS. Dose 1 : CT DLP Total : 55.6 mGycm DLP Spiral Max : 55.6 mGycm Maximum CTDI Vol : 1.2 mGy FINDINGS: Scattered retained secretions in the trachea and proximal airways although patent. Moderate severe emphysema. Scattered small pulmonary nodules are stable. No new or enlarging nodule. No suspicious mediastinal or hilar lymphadenopathy. Heart size is within normal limits. No acute findings in limited imaging of the upper abdomen. No suspicious osseous lesion. Coronary artery calcification: Mild. FOLLOW-UP CODE: Lung-RADS Category 2: Benign Appearance or Behavior. Nodules with a very low likelihood of becoming active cancer due to size or lack of growth. Lung-RADS Modifier N/A: No Modifier Needed Procedure Note John Queen MD - 12/05/2022 CT LUNG CANCER SCREENING LOW DOSE 12/05/2022 4:32 PM CLINICAL HISTORY: Asymptomatic patient meeting NCCN high risk criteria forlung screening. Z87.891-Personal history of nicotine zkcqybpvsi-VLZ-21-CM Z12.2-Encounter for screening for malignant neoplasm of respiratory bmsowc-ADS-58-CM. COMPARISON: Multiple priors, most recently 2021 PROCEDURE COMMENTS: Noncontrast, low-dose, multidetector CT chest perdepartment protocol. Interactive 3-D postprocessing done by the reviewing physicianon a [employer] workstation, using Maximum intensity projections (MIPS) and [employer] CAD for improved lesion detection. Laws images archived to PACS. Dose 1 : CT DLP Total : 55.6 mGycm DLP Spiral Max : 55.6 mGycm Maximum CTDI Vol : 1.2 mGy FINDINGS: Scattered retained secretions in the trachea and proximal airwaysalthough patent. Moderate severe emphysema. Scattered small pulmonary nodules are stable. No new or enlargingnodule. No suspicious mediastinal or hilar lymphadenopathy. Heart size is withinnormal limits. No acute findings in limited imaging of the upper abdomen. No suspicious osseous lesion. Coronary artery calcification: Mild. FOLLOW-UP CODE: Lung-RADS Category 2: Benign Appearance or Behavior.Nodules with a very low likelihood of becoming active cancer due to size or lackof growth. Lung-RADS Modifier N/A: No Modifier Needed IMPRESSION: No new or enlarging pulmonary nodule. RECOMMENDATION: Low Dose CT - 1 Yr A summary letter communicating these results will be mailed to thepatient's address of record. - Note: Radiology results need to be interpreted within a comprehensiveclinical context. If you have questions about the radiology report, please contactthe office of the ordering clinician. [email or web address] Johnson Regan MD [facility] CT ORDERABLES Final Result * LUANNE (03/29/2018 9:15 AM EST) LUANNE CLINICAL REPORT Negative Not Applicable [email or web address] Comment: A negative result indicates a low likelihood that a colorectal cancer (CRC) or an advanced adenoma (adenomatous polyps with more advanced pre-malignant features) is present. The chance that a person with a negative Cologuard test has a colorectal cancer is less than 1 in 1500 (negative predictive value >99.9%) or has an advanced adenoma is less than 5.3% (negative predictive value 94.7%). These data are based on a prospective cross-sectional screening study of 10,000 individuals at average risk for colorectal cancer who were screened with both Cologuard and colonoscopy. (Kaycee Tiwari al, N Engl J Med 2014;370(14):5556-1761) COLOGUARD RE-SCREENING RECOMMENDATION: Periodic routine colorectal cancer screening is an important part of preventive healthcare for asymptomatic persons at average risk for colorectal cancer. Following a negative Cologuard result, the [place] Cancer Society and U.S. Multi-Society Task Force screening guidelines recommend a Cologuard re-screening interval of 3 years. References: [place] [employer] Society (ACS). Colorectal cancer prevention and early detection. [place], [place]: [place] [employer] Society; [updated 2015Jun 19]. https://www.cancer.org/cancer/knbji-iigwaq-cuoeuy/qoemdxsdj-tqltzjsqw-omycahg/ac s-rec ommendations.html. Accessed October 26, 2017; William ARMAS, Henri ARRINGTON, Ramya HarleyK, Colorectal Cancer Screening: Recommendations for Physicians and Patients from the U.S. Multi-Society Task Force on Colorectal Cancer Screening, Am J Gastroenterology 2017; 112:9200-0486. Test Type: Composite algorithmic analysis of stool DNA-biomarkers with hemoglobin immunoassay. Quantitative values of individual biomarkers are not reportable and are not associated with individual biomarker result reference ranges. Precautions and Limitations: Cologuard is intended for colorectal cancer screening of adults of either sex, 50 years or older, who are at typical average-risk for colorectal cancer. A negative Cologuard test result does not guarantee the absence of colorectal cancer or advanced adenoma (pre-cancer). Patients with a negative Cologuard test result should be advised to continue participating in a colorectal cancer screening program. Cologuard may produce a positive result, even though a colonoscopy may not find colorectal cancer or precancerous polyps. The performance of Cologuard has been established in a cross sectional study (i.e., single point in time). Performance has not been evaluated in adults who have been previously tested with Cologuard or in patients less than 50 years of age. Cologuard has been approved for use by the U.S. FDA. Cologuard performance data in a 10,000 patient pivotal study using colonoscopy as the reference method can be accessed at the following location: www.WITOI.Macaw/results. Additional description of the Cologuard test process, warnings and precautions can be found at www.cologuardtest.com. Rx Only. Stool specimen (specimen) 03/29/2018 9:15 AM EST 03/30/2018 3:15 PM EST Alejandro Brady MD [employer] - ORDERABLES Donna l Result Performing Organization Address [facility] Co de Phone Number [employer] [address] [place] [address] * (ABNORMAL) HEPATITIS C ANTIBODY - SCREENING (03/26/2018 10:03 AM EST) Hep C Ab Reactive(A ) Non-Reacti ve 03/26/2018 3:07 PM EST [facility] Comment:Reactive. Antibodies to HCV detected. >97% of specimens with high signal cutoff confirm as reactive. HCV QUANT W/RFLX TO GENOTYPE -REF LAB Blood Venipuncture / Unknown 03/26/2018 10:03 AM EST 03/26/2018 10:03 AM EST Alejandro Brady MD HEMATOLOGY ORDERABLES Final Res ult [facility] [address] [facility] [address] [place] [id number] from Last 3 Months or Most Recently Relevant to Health Maintenance [place] [address] [place] [address] MEDICARE MR [facility] MEDICARE MR Advance Directives For more information, please contact: [phone] * Full Code (Latest Code Status on File) Date Activated Date Inactivated Comments 09/08/2015 3:20 PM 09/08/2015 9:07 PM
--- OUTSIDE RECORDS SUMMARY | 2024-10-29 16:24 | XMS_ITS | Clinical Summary ---
Author Organization Healthcare Address [address] [place] [address] Care Team Providers Care Box Toe Maker Name Role Phone Bob Ventura APRN Primary Care Provider [phone] Allergies No known active allergies Medications albuterol 108 (90 Base) MCG/ACT inhaler INHALE 2 PUFFS BY MOUTH EVERY 4 TO 6 HOURS NEEDED FOR SHORTNESS OF BREATH FOR WHEEZING 5 Active gabapentin (Neurontin) 400 MG capsule TAKE 1 CAPSULE BY MOUTH THREE TIMES DAILY . APPOINTMENT REQUIRED FOR FUTURE REFILLS 5 Active tamsulosin (Flomax) 0.4 MG 24 hr capsule TAKE 1 CAPSULE BY MOUTH AT BEDTIME NIGHTLY 5 Active Fluticasone-Ume clidin-Vilant (Trelegy Ellipta) 100-62.5-25 MCG/ACT aerosol powder Inhale. Active Encounters Date Type Department Care Team Description 08/22/2024 1:30 PM EDT Consult [facility] Plastic [facility] Re[facility]ive Surgery [address] [place] [phone] Dahiana Uribe MD Sebaceous cyst (Primary Dx) 08/22/2024 Travel from Last 3 Months Social History Tobacco Use Types Packs/Day Years Used Date Smoking Tobacco: Every Day Cigarettes Smokeless Tobacco: Never Tobacco Cessation:Ready to Q uit: Not Asked; Counseling Given: Yes Comments:Smokes 1 pack of cigarettes per day Sex and Gender Information Value Date Recorded Sex Assigned at Not on file Legal Sex Male 8:43 PM EDT Gender Identity Not on file Sexual Orientation Not on file Last Filed Vital Signs Vital Sign Reading Time Taken Comments Blood Pressure 134/82 08/22/2024 1:28 PM EDT Pulse 81 08/22/2024 1:28 PM EDT Temperature 36.7 C (98 F) 08/22/2024 1:28 PM EDT Respiratory Rate 16 08/22/2024 1:28 PM EDT Oxygen Saturation 92% 08/22/2024 1:28 PM EDT Inhaled Oxygen Concentration - - Weight 77.1 kg (169 lb 15.6 oz) 08/22/2024 1:28 PM EDT Height 177.8 cm (5' 10 ) 08/22/2024 1:28 PM EDT Body Mass Index 24.39 08/22/2024 1:28 PM EDT Plan of Treatment Health Maintenance Due Date Last Done Comments [facility]-Depression Screening 1962 [facility]-Infant/Child/Adol SDOH Screenings 1962 [facility]- SDOH Screenings 1980 [facility]-Adult SDOH Screenings 1980 CT Colonography 12/11/2007 Colonoscopy 12/11/2007 FIT 12/11/2007 FOBT 12/11/2007 Sigmoidoscopy 12/11/2007 FIT-DNA 03/29/2021 03/29/2018 [facility]-Colorectal Cancer Screening 03/29/2021 [facility]-Zoster Vaccines (2 of 2) 05/27/2024 04/01/2024 [facility]-Influenza Vaccine (#1) 10/27/202412/11, 11/29/2021, 11/02/2020, Additional history exists [facility]-DTaP,Tdap,and Td Vaccines (2 - Td or Tdap) 08/21/2027 08/20/2017 [facility]-RSV Vaccine: 60+ Years or (1 - 1-dose 75+ series) 2037 [facility]-Pneumococcal Vaccine: 50+ Years Completed 03/07/2022, 09/07/2015 [id number] Vaccine Completed 04/01/2024, 11/29/2021, 09/20/2021, Additional history exists HPV Vaccines Aged Out No longer eligi ble based on patient's age to complete this topic [facility]-HIB Vaccines Aged Out No longer e ligible based on patient's age to complete this topic [facility]-Hepatitis A Vaccines Aged Out No longer eligible based on patient's age to complete this topic [facility]-IPV Vaccines Aged Out No longer e ligible based on patient's age to complete this topic [facility]-Rotavirus Vaccines Aged Out No lo nger eligible based on patient's age to complete this topic Insurance [employer] Care Teams Box Toe Maker Relationship Specialty Start Date End Date Bob Ventura APRN [address] [place] [address] [place] [address] PCP - General 08/22/24
--- OUTSIDE RECORDS SUMMARY | 2024-10-29 16:24 | XMS_ITS | Encounter Summary ---
Author Organization [facility] Address [address] [place] [id number] Care Team Providers Care Joy Loader Name Role Phone FranklinBob cheatham Matilde GOETZ Primary Care Provider [phone] Reason for Referral * Consultation (Routine) - Closed Specialty Diagnoses / Procedures Referred By Nasrin gurrola Referred To Contact Plastic Surgery Diagnoses Epidermoid cyst of skin of scalp Shankar Zaragoza MD [address] [place] [address] Phone: tel: fax: Referral ID Status Reason Start Date Expiration Date V isits Requested Visits Authorized [id number] Closed Specialty Services Required 06/04/2024 12/04/2025 1 1 Encounter Details Date Type Department Care Team (Late st Contact Info) Description 06/04/2024 Community [facility] [address] [place] [address] Shankar Zaragoza MD [address] [place], [place] [id number] Epidermoid cyst of skin of scalp (Primary Dx) Social History Tobacco Use Types Packs/Day Years Used Date Smoking Tobacco: Every Day Sex and Gender Information Value Date Recorded Sex Assigned at Not on file Legal Sex Male 8:43 PM EDT Gender Identity Not on file Sexual Orientation Not on file documented as of this encounter Plan of Treatment Scheduled Referrals Name Type Priority Associated Diagnoses Order Schedule Ambulatory Referral to Plastic Surgery Outpatient Referral Routine Epidermoid Cyst Of Skin Of Scalp Expected: 06/04/2024, Expires: 12/04/2025 documented as of this encounter Visit Diagnoses Diagnosis Epidermoid cyst of skin of scalp- Primary documented in this encounter Care Teams Joy Loader Relationship Specialty Start Date End Date Bob Ventura APRN [address] [place] [address] PCP - General 08/22/24 documented as of this encounter
[2024-10-29 16:25] LABS: Coronavirus 19, PCR Not Detected (NotDetected); Influenza A, PCR Not Detected (NotDetected); Influenza B, PCR Not Detected (NotDetected)
--- NOTE | 2024-10-29 16:25 | XR_ITS ---
PROCEDURE INFORMATION: Exam: XR Chest Exam date and time: 10/29/2024 4:47 PM Age: 63 years old Clinical indication: Shortness of breath; Additional info: Copd/soa TECHNIQUE: Imaging protocol: Radiologic exam of the chest. Views: 1 view. COMPARISON: CT CHEST WO CON 06/18/2024 10:54 AM FINDINGS: Lungs: No consolidation or pulmonary edema. Pulmonary emphysema. Pleural spaces: No pleural effusion. No pneumothorax. Heart/Mediastinum: The cardiomediastinal silhouette is not enlarged. Bones/joints: Visualized bones demonstrate no acute abnormality. IMPRESSION: No acute abnormality is identified.
[2024-10-29 16:29] VITALS: O2SAT 94
[2024-10-29] MEDS: METHYLPREDNISOLONE SOD SUCC 125MG VIAL 125 MG IV (16:38)
[2024-10-29] MEDS: IPRATROPIUM/ALBUTEROL 3 ML NEB IH (16:41)
--- NOTE | 2024-10-29 16:45 | ECG_ITS ---
APPROVED REPORT Exam: Resting ECG HR:74 bpm ECG Measurements Heart Rate 74 AXES KS 133 P 66 QRSd 93 QRS 75 QT 380 T 56 QTc 408 Conclusion SINUS RHYTHM MODERATE ST DEPRESSION [0.05+ mV ST DEPRESSION] ABNORMAL ECG UNCONFIRMED REPORT Normal sinus rhythm. No ST elevation or depression. QTc of 408 Electronically signed by : JOYCELYN MATHEW, 10/30/2024 00:59:04
[2024-10-29 16:58] LABS: Albumin Level 4.2 g/dl (3.5-5.0); Chloride 107 mmol/L (98-107); Potassium 4.1 mmoL/L (3.5-5.1); Sodium 140 mmol/L (136-145)
[2024-10-29 17:00] LABS: Alanine Aminotransferase 17 U/L (12-78); Anion Gap 10.1 mEq/L (5-15); Aspartate Amino Transferase 25 U/L (17-59); Blood Urea Nitrogen 16 mg/dl (9-20); Carbon Dioxide 27 mmol/L (22.0-30.0); Creatinine Clearance Estimated 82 mL/min (50-200); Creatinine,Serum 0.70 mg/dl (0.66-1.25); Estimated Glomerular Filt Rate 115 ml/min (>60); GFR (African American) 139 ML/MIN (>60); Hematocrit 47.5 % (42.0-52.0); Hemoglobin 15.6 g/dL (14.1-18.0); Immature Granulocytes % 0.2 %; Mean Corpuscular HGB Conc 32.8 g/dL (31.8-35.4); Mean Corpuscular Hemoglobin 31.4 pg (27.0-31.2); Mean Corpuscular Volume 95.6 fl (80-94); Nucleated Red Blood Cells % 0 %; Platelet Count 187 K/mm3 (142-424); Red Blood Count 4.97 M/mm3 (4.60-6.20); Red Cell Distribution Width-SD 44.4 fL; White Blood Count 6.2 K/mm3 (4.8-10.8)
[2024-10-29 17:01] LABS: Albumin/Globulin Ratio 1.4 (1.1-1.8); Alkaline Phosphatase 50 U/L (38-126); Bilirubin,Total 0.9 mg/dl (0.2-1.3); Calcium 9.3 mg/dl (8.4-10.2); Globulin 3.1 g/dL (1.3-3.2); Glucose 120 mg/dl (74-100); Total Protein,Serum 7.3 g/dl (6.3-8.2)
[2024-10-29 18:54] VITALS: BP 131/88; PULSE 84; RESP 18; TEMP 37.1; O2SAT 97
== END 2024-10-29 18:54 | disposition home or self-care (01) ==
PROVIDERS: Nurse Practitioner Family; Emergency Provider Student in an Organized Health Care Education/Training Program
DX: J44.1 Chronic obstructive pulmonary disease with (acute) exacerbation (principal); F17.210 Nicotine dependence, cigarettes, uncomplicated
CPT/HCPCS: 71045; 80053; 85025; 87636; 93005; 96374; 99284; J2919

== ENCOUNTER 2025-01-06 12:32 | Outpatient (CLI) | payer MEDICARE, SELFPAY ==
--- OUTSIDE RECORDS SUMMARY | 2025-01-06 12:34 | XMS_ITS | Clinical Summary ---
Author Organization [facility] Address [address] [place] [address] Phone Care Team Providers Care Chemical Preparer Name Role Phone Unavailable Primary Care Provider [...] FURTHER REFILLS OF GABAPENTIN cynthia ae 06/06/21 #[id number], 09/20/21 #[id number] [facility] audit completed by Keerthi Henry RN on [...] from lumbar pain. Had seen specialist in [place]. COPD, severe 03/28/2018 Overview (01/28/2021): PFTs Feb [...] takes longer to resolve. 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 with chronic wheezing, [...] Date Smoking Tobacco: Every Day Cigarettes 2 46.1 Started: 1976 Smokeless Tobacco: Never Tobacco Cessation:Ready [...] Date Recorded PHQ-2 Total Score 0 06/02/2022 [facility] of Occupat ional [facility] - Occupational Stress Questionnaire Answer Date Recorded [...] FIT 12/11/2007 Sigmoidoscopy 12/11/2007 Virtual Colonography 12/11/2007 RSV or 60+ (1 - Risk 50-74 years 1-dose series) 2012 Zoster (1 of 2) 2012 Cologuard 03/29/2021 03/29/2018, 03/29/2018 Colon Cancer Screening 03/29/2021 Wellness Exam Medicare 06/03/2023 06/02/2022 Low Dose Lung Cancer Screening 12/06/2023 12/05/2022, 12/01/2021, 08/04/2020, Additional history exists COVID-19 Vaccine ( season) 2024 11/29/2021, 09/20/2021, 01/28/2021, Additional history [...] contact the office of the ordering clinician. [email or web address] Narrative 12/05/2022 4:[address] LUNG CANCER SCREENING LOW DOSE 12/05/2022 4:32 PM CLINICAL HISTORY: Asymptomatic patient meeting NCCN high risk criteria for lung screening. Z87.891-Personal history of nicotine egxtmtceqd-QNF-58-CM Z12.2-Encounter for screening for malignant neoplasm of respiratory zefnlu-MWG-30-CM. COMPARISON: Multiple priors, most recently 2021 PROCEDURE COMMENTS: Noncontrast, low-dose, multidetector CT chest per department protocol. Interactive 3-D postprocessing done by the reviewing physician on a Managed Objects workstation, using Maximum intensity projections (MIPS) and Managed Objects LUNG CAD for improved lesion detection. Laws [...] criteria forlung screening. Z87.891-Personal history of nicotine mgkoieaaxo-HHO-34-CM Z12.2-Encounter for screening for malignant neoplasm of respiratory utltax-IQS-91-CM. COMPARISON: Multiple priors, most recently 2021 PROCEDURE COMMENTS: Noncontrast, low-dose, multidetector CT chest perdepartment protocol. Interactive 3-D postprocessing done by the reviewing physicianon a Managed Objects workstation, using Maximum intensity projections (MIPS) and Music[employer] CAD for improved lesion detection. Laws images [...] please contactthe office of the ordering clinician. [email or web address] Johnson Regan MD [facility] ORDERABLES Final Result * LUANNE (03/29/2018 9:15 AM EST) LUANNE CLINICAL REPORT Negative Not Applicable [employer] Comment: A negative result indicates a low [...] (Kaycee Tiwari al, N Engl J Med 2014;370(14):5824-2084) COLOGUARD RE-SCREENING RECOMMENDATION: Periodic routine colorectal cancer screening is an important part of preventive healthcare for asymptomatic persons at average risk for colorectal cancer. Following a negative Cologuard result, the [place] [employer] and U.S. Multi-Society Task Force screening guidelines recommend a Cologuard re-screening interval of 3 years. References: [place] [employer] (ACS). Colorectal cancer prevention and early detection. [place], [place]: [place] [employer]; [updated 2015Jun 19]. https://www.cancer.org/cancer/vchgb-ybyvoy-jkziku/hqwlautti-jnqtvjhxj-ktpwwdh/ac s-rec ommendations.html. Accessed October 26, 2017; William ARMAS, Henri ARRINGTON, Ramya HarleyK, Colorectal Cancer Screening: Recommendations for Physicians and Patients from the U.S. Multi-Society Task Force on Colorectal Cancer Screening, Am J Gastroenterology 2017; 112:9960-0552. Test Type: Composite algorithmic analysis of stool [...] can be accessed at the following location: [email or web address]. Additional description of the Cologuard test process, warnings and precautions can be found at www.cologuardtest.com. Rx Only. Stool specimen (specimen) 03/29/2018 9:15 AM EST 03/30/2018 3:15 PM EST Alejandro Brady MD [employer] - ORDERABLES Donna l Result Performing Organization Address [facility] Co de Phone Number [employer] [address] [place] [address] * (ABNORMAL) HEPATITIS C ANTIBODY - SCREENING (03/26/2018 10:03 AM EST) Hep C Ab Reactive(A ) Non-Reacti ve 03/26/2018 3:07 PM EST [employer] Comment:Reactive. Antibodies to HCV detected. >97% of specimens with high signal cutoff confirm as reactive. HCV QUANT W/RFLX TO GENOTYPE -REF LAB Blood Venipuncture / Unknown 03/26/2018 10:03 AM EST 03/26/2018 10:03 AM EST Alejandro Brady MD HEMATOLOGY ORDERABLES Final Res ult Performing Organization Address City/[facility]/ZIP Co de Phone Number [employer] [address] [facility] , [address] [place], [place] [id number] from Last 3 Months or Most Recently Relevant to Health Maintenance Insurance [facility] MEDICARE MR [facility] MEDICARE MR Advance Directives For more information, please contact: [phone] * Full Code (Latest Code Status on File) Date Activated Date Inactivated Comments 09/08/2015 3:20 PM 09/08/2015 9:07 PM
--- OUTSIDE RECORDS SUMMARY | 2025-01-06 12:34 | XMS_ITS | Encounter Summary ---
Author Organization [facility] Address [address] [id number] Care Team Providers Care Sludge Control Operator Name Role Phone FranklinBob cheatham Matilde GOETZ Primary Care Provider [phone] Reason for Referral * Consultation (Routine) - Closed Specialty Diagnoses / Procedures Referred By Nasrin gurrola Referred To Contact Plastic Surgery Diagnoses Epidermoid cyst of skin of scalp Shankar Zaragoza MD [address] [place] [address] Phone: tel: fax: Referral ID Status Reason Start Date Expiration Date V isits Requested Visits Authorized [id number] Closed Specialty Services Required 06/04/2024 12/04/2025 1 1 Encounter Details Date Type Department Care Team (Late st Contact Info) Description 06/04/2024 Community [facility] [address] [place] [address] Shankar Zaragoza MD [address] [place], [place] [id number] Epidermoid cyst of skin of scalp (Primary [...] Primary documented in this encounter Care Teams Sludge Control Operator Relationship Specialty Start Date End Date Bob Ventura APRN [address] [place] [address] PCP - General 08/22/24 documented as of this encounter
--- OUTSIDE RECORDS SUMMARY | 2025-01-06 12:34 | XMS_ITS | Clinical Summary ---
Author Organization Healthcare Address [address] [place] [address] Care Team Providers Care Csw Name Role Phone Bob Ventura APRN Primary Care Provider [phone] Allergies No known active allergies Medications albuterol [...] Ellipta) 100-62.5-25 MCG/ACT aerosol powder Inhale. Active Social History Tobacco Use Types Packs/Day Years [...] UKY-Pneumococcal Vaccine: 50+ Years Completed 03/07/2022, 09/07/2015 [id number]-16 Vaccine Completed 04/01/2024, 11/29/2021, 09/20/2021, Additional history [...] this topic Insurance [employer] Care Teams Csw Relationship Specialty Start Date End Date Bob Ventura APRN [address] [place] [address] VISHAL Sams [id number] PCP - General 08/22/24
[2025-01-06 13:25] VITALS: PULSE 73; PULSE 77
[2025-01-06] MEDS: ALBUTEROL 0.083% 2.5 MG/3 ML NEB IH (13:25)
== END 2025-01-06 23:59 | disposition home or self-care (01) ==
LOC: RT 12:33
PROVIDERS: PCP Nurse Practitioner Family; Visit Provider Internal Medicine Pulmonary Disease
DX: J44.9 Chronic obstructive pulmonary disease, unspecified (principal); R94.2 Abnormal results of pulmonary function studies
CPT/HCPCS: 94010; 94618; 94640